=== PATIENT | male | born 1975 | race Caucasian/White ===

== ENCOUNTER 2018-07-02 13:19 | Emergency (ER) | payer BC, SELFPAY ==
[2018-07-02 13:20] VITALS: BP 140/86; PULSE 60; RESP 18; TEMP 36.8; O2SAT 100; BMI 31.8
--- NOTE | 2018-07-02 14:31 | CT_ITS ---
STUDY: CT ABDOMEN AND PELVIS WITH CONTRAST REASON FOR EXAM: Male, 43 years old. Lower abdominal pain for 5 to 6 years. RADIATION DOSAGE (If Supplied By Facility): CTDIvol = ( 19.34 ) mGy, DLP = ( 1212.50 ) mGycm TECHNIQUE: Transaxial images were obtained from the dome of the diaphragm to the symphysis pubis without oral contrast. 100CC ml of Isovue 250 contrast was administered. Sagittal and coronal images were reconstructed. Individualized dose optimization techniques were used for this CT. COMPARISON: None. FINDINGS: The visualized lung bases are unremarkable. The visualized portions of the heart are within normal limits. The liver is mildly enlarged and demonstrates mild fatty enhancement. There is no focal mass. Normal gallbladder and extrahepatic biliary system. There is borderline spinal with multiple calcified granulomata. Normal pancreas. Normal bilateral adrenal glands. There is cortical scarring of the bilateral kidneys without mass or renal calculi. Normal bilateral ureters. Normal visualized stomach. Normal small intestine. Normal colon. The appendix is visualized and appears normal. Normal abdominal aorta. Normal inferior vena cava. Normal retroperitoneum. The urinary bladder is incompletely distended. No obvious mass or filling defect. The prostate is normal in size. There is no pelvic lymphadenopathy. No free air or free fluid is seen within the peritoneal cavity. There is a small umbilical hernia of omental fat. There is a small right inguinal hernia of omental fat. The abdominal wall is otherwise unremarkable. There are diffuse degenerative changes of the visualized lumbar spine. There is a minimal levoscoliosis CT/Abdomen/Pelvis W IV Cont ONLY IMPRESSION: 1. Mild hepatosplenomegaly with fatty infiltration of the liver. 2. Calcified splenic granulomata. 3. Umbilical and right inguinal hernia of omental fat. 4. Degenerative changes of the lumbar spine. 5. Cortical scarring of the bilateral kidneys. Electronically Signed: Gavin Mayorga DO at 16:10 EDT Tel [phone], Service support ,
[2018-07-02] MEDS: 0.9% Normal Saline 1,000 ML 125 ML IV (14:56)
[2018-07-02 15:02] LABS: Absolute Lymphocyte Count 2.09 X10^3/ul (0.83-4.51); Absolute Neutrophil Count 6.6 X10^3/uL (2.0-7.7); Basophil# 0.05 X10^3/uL; Basophil% 0.5 % (0-1); Eosinophil# 0.42 X10^3/uL; Eosinophils% 4.3 % (0-5); Hematocrit 44.6 % (40-54); Hemoglobin 14.9 g/dl (13.0-16.5); Lymphocyte # 2.09 X10^3/ul (4.0); Lymphocyte % 21.3 % (19-41); Mean Corp Hgb Conc 33.4 g/gl (32-36); Mean Corpuscular Hgb 31.6 pg (27.0-32.0); Mean Corpuscular Volume 94.7 fL (80-94); Mean Platelet Vol. 9.8 fl (6.2-12.0); Monocyte% 6.1 % (0-10); Neutrophil # 6.63 X10^3/uL (2.7-7.7); Neutrophil % 67.5 % (47-70); Platelet Count 159 K/mm3 (150-450); RBC Distribution Width CV 12.7 % (11.6-14.6); RBC Distribution Width SD 42.7 fl (35.1-43.9); Red Blood Count 4.71 M/mm3 (4.6-6.2); White Blood Count 9.8 K/mm3 (4.4-11.0)
[2018-07-02 15:07] LABS: POSITIVE COUNT NO; POSITIVE DIFFERENTIAL NO; POSITIVE MORPHOLOGY NO
[2018-07-02 15:20] VITALS: BP 129/79; PULSE 57; RESP 16; O2SAT 98
[2018-07-02 15:21] LABS: AST(SGOT) 27 U/L (15-37); Alanine Aminotransfer ALT/SGPT 24 U/L (16-61); Albumin, Serum 3.8 g/dL (3.2-5.0); Alkaline Phosphatase 86 U/L (45-117); Anion Gap 5 (5-15); BUN 14 mg/dL (7-18); BUN/Creat Ratio 11.7 RATIO (10-20); Calcium,Total 9.3 mg/dL (8.5-10.1); Chloride 106 mmol/L (98-107); EST Glomerular Filtration Rate 71 mL/min (>60); Est Glom Filt Rate - Afr Amer 86 mL/min (>60); Estimated Creatinine Clearance 86.28 ml/min; Globulin 3.8 g/dL (2.2-4.2); Glucose 77 mg/dL (74-106); Lipase 130 U/L (73-393); Potassium 4.1 mmol/L (3.5-5.1); Protein, Total 7.6 g/dL (6.4-8.2); Sodium Level 139 mmol/L (136-145)
[2018-07-02 16:20] LABS: Bacteria 0 SEEN /hpf (None Seen); Mucous, Urine 0 SEEN /hpf (<or=2+); Red Blood Cells-Urine 0 SEEN /hpf (0-5); Squamous Epithelial Cells - UA 0 SEEN /hpf (0-5); White Blood Cells 0 SEEN /hpf (0-5)
--- NOTE | 2018-07-02 16:30 | ED.VISSUMM ---
- ER Visit Summary Date of Service: 07/02/18 Chief Complaint: Abdominal pain History of Present Illness: The patient is a 43 M who states for the past couple months he has had pain in his abdomen described as suprapubic radiating to each side. Saw oil developer recently found in blood work. He had some diarrhea yesterday which is not that uncommon. He had vomiting this morning. Epigastric he denies any fevers. No rashes. He denies any bowel or stomach issues as a teenager or in his knees. No blood in the stool or mucus. Physical Examination: Afebrile vital signs are stable Gen: Well-nourished well-developed Head: Normocephalic atraumatic Eyes: Perrl EOMI ENT: TMs clear no rhinorrhea moist mucous membranes Neck: Supple no lymphadenopathy no JVD nontender CVS: Regular rate rhythm no murmurs normal S1-S2 Respiratory: No distress clear to auscultation bilaterally chest nontender Abdomen: Soft tender right abdomen left abdomen suprapubic without guarding or rebound nondistended normal bowel sounds no masses Back: Nontender Extremity: Nontender no edema Skin: Normal color no rash Neuro: alert orientated ?3 CN II-XII intact normal strength sensation reflexes gait cerebellar Psych: Normal affect normal mood Test Results: CBC BMP liver lipase were normal. CT abdomen pelvis was also negative. Emergency Department Course and Treatment: Patient received IV fluids. I will write for Bentyl and Zofran. He is to follow-up with his oil developer. Impression: 1. Acute abdominal pain 2. Vomiting This note was generated with [employer] dictation software. It may contain incorrect words, spelling, and punctuation that were not noted in review of the chart prior to signing ED Disposition - Plan for ED Patient: Disposition: Home or Assisted Living Chief Complaint: Abd Pain Instructions: ED Abdominal Pain Unkn Cause Prescriptions: Ondansetron [Zofran Odt] 4 mg PO Q8H PRN PRN #10 tab PRN Reason: Nausea Dicyclomine HCl [Bentyl] 20 mg PO TIDAC PRN #20 cap PRN Reason: Pain Referrals: Antonio Salamanca MD [Primary Care Provider] - As soon as possible Additional Instructions: Call your oil developer for follow-up appointment
--- NOTE | 2018-07-02 16:34 | ED.DCSUM_ITS ---
- ER Visit Summary Date of Service: 07/02/18 Chief Complaint: Abdominal pain History of Present Illness: The patient is a 43 M who states for the past couple months he has had pain in his abdomen described as suprapubic radiating to each side. Saw day porter recently found in blood work. He had some diarrhea yesterday which is not that uncommon. He had vomiting this morning. Epigastric he denies any fevers. No rashes. He denies any bowel or stomach issues as a teenager or in his knees. No blood in the stool or mucus. Physical Examination: Afebrile vital signs are stable Gen: Well-nourished well-developed Head: Normocephalic atraumatic Eyes: Perrl EOMI ENT: TMs clear no rhinorrhea moist mucous membranes Neck: Supple no lymphadenopathy no JVD nontender CVS: Regular rate rhythm no murmurs normal S1-S2 Respiratory: No distress clear to auscultation bilaterally chest nontender Abdomen: Soft tender right abdomen left abdomen suprapubic without guarding or rebound nondistended normal bowel sounds no masses Back: Nontender Extremity: Nontender no edema Skin: Normal color no rash Neuro: alert orientated ?3 CN II-XII intact normal strength sensation reflexes gait cerebellar Psych: Normal affect normal mood Test Results: CBC BMP liver lipase were normal. CT abdomen pelvis was also negative. Emergency Department Course and Treatment: Patient received IV fluids. I will write for Bentyl and Zofran. He is to follow-up with his day porter. Impression: 1. Acute abdominal pain 2. Vomiting This note was generated with [employer] dictation software. It may contain incorrect words, spelling, and punctuation that were not noted in review of the chart prior to signing ED Disposition - Plan for ED Patient: Disposition: Home or Assisted Living Chief Complaint: Abd Pain Instructions: ED Abdominal Pain Unkn Cause Prescriptions: Ondansetron [Zofran Odt] 4 mg PO Q8H PRN PRN #10 tab PRN Reason: Nausea Dicyclomine HCl [Bentyl] 20 mg PO TIDAC PRN #20 cap PRN Reason: Pain Referrals: Antonio Salamanca MD [Primary Care Provider] - As soon as possible Additional Instructions: Call your day porter for follow-up appointment
[2018-07-02 16:36] LABS: Color, Urine Yellow (Yellow); Glucose, Dipstick Normal (Normal); Ketone-Dipstick Negative (Negative); Leukocyte Esterase-Dipstick Negative /ul (Negative); Nitrite-Dipstick Negative (Negative); Occult Blood-Urine Negative /ul (Negative); Protein-Dipstick 30 mg/dl (Negative); Specific Gravity, Urine 1.015 (1.002-1.030); Urine Bilirubin Dipstick Negative (Negative); Urine Clarity Sl. Cloudy (Clear); Urine Urobilinogen Normal (Normal)
[2018-07-02 16:43] VITALS: BP 138/62; PULSE 74; RESP 16; O2SAT 99
== END 2018-07-02 16:43 | disposition home or self-care (01) ==
PROVIDERS: Emergency Provider Emergency Medicine; Family Provider Family Medicine; PCP Family Medicine
DX: R10.30 Lower abdominal pain, unspecified (principal); R11.2 Nausea with vomiting, unspecified; R19.7 Diarrhea, unspecified; Z72.0 Tobacco use
CPT/HCPCS: 74177; 80053; 81001; 83690; 85025; 96360; 96361; 99285; J7030; Q9967; A4216

== ENCOUNTER 2018-09-24 12:31 | Emergency (ER) | payer BC, SELFPAY ==
[2018-09-24 12:32] VITALS: BP 129/77; PULSE 64; RESP 16; TEMP 36.2; O2SAT 100; BMI 32.1
--- NOTE | 2018-09-24 13:34 | ED.VISSUMM ---
- ER Visit Summary Date of Service: 09/24/18 Chief Complaint: Left lower quadrant abdominal and groin pain. History of Present Illness: The patient is a 43 M male history of abdominal hernias and reflux. Also irritable bowel. Patient never had any prior abdominal surgery. He was seen in the ER and treated in June at that time he had a CAT scan that showed umbilical and right inguinal hernia. He had normal labs at that time. Patient states for the last 2 weeks is an intermittent left lower quadrant abdominal pain. Worse with bearing down no bowel movement. He has not seen any lump or hernia. He denies any dysuria. No trauma. No fever, nausea, vomiting, diarrhea or constipation. No weight loss. No melena. States pain comes and goes. There is times is completely pain-free. Physical Examination: Middle-aged male no acute distress. Vital signs are stable he is afebrile. He does not look septic or toxic he is in no distress. HEENT exam unremarkable. Lungs clear to auscultation bilaterally. Heart regular rate and rhythm no murmur. Abdomen soft. Nondistended normal bowel sounds. He is a small umbilical hernia easily reducible. At this time I do not feel an obvious left inguinal hernia but that is where it is tender. He also has a small right inguinal hernia is also not incarcerated or strangulated. External exam is unremarkable. Testicles are nontender. There is no masses. Extremities moves all 4 back unremarkable neurologically is awake and alert. Test Results: None Emergency Department Course and Treatment: I reviewed the patient's prior negative lab work and CAT scan studies. I went over those with him. Treatment Plan: Patient referred to Dr. Arnie Longo of the [facility] or Dr. River Crockett for evaluation of possible left inguinal hernia. Disposition: discharge Impression: Left groin and lower quadrant abdominal pain uncertain etiology This note was generated with [employer] dictation software. It may contain incorrect words, spelling, and punctuation that were not noted in review of the chart prior to signing ED Disposition - Plan for ED Patient: Disposition: Home or Assisted Living Chief Complaint: Abd Pain Instructions: ED Abdominal Pain Unkn Cause, ED Hernia Inguinal Referrals: River Crockett MD [STAFF PHYSICIAN] - As soon as possible Antonio Salamanca MD [Primary Care Provider] - As Needed Joshua Longo MD [STAFF PHYSICIAN] - As soon as possible Additional Instructions: On follow-up upon the surgeons listed. Dr. Waddell works at the [facility]. Dr. Crockett works here at the [facility]. Either 1 of them can evaluate you for possible left inguinal hernia. On a prior CAT scan you had a bellybutton hernia and also a right groin hernia.
--- NOTE | 2018-09-24 13:37 | ED.DCSUM_ITS ---
- ER Visit Summary Date of Service: 09/24/18 Chief Complaint: Left lower quadrant abdominal and groin pain. History of Present Illness: The patient is a 43 M male history of abdominal hernias and reflux. Also irritable bowel. Patient never had any prior abdominal surgery. He was seen in the ER and treated in June at that time he had a CAT scan that showed umbilical and right inguinal hernia. He had normal labs at that time. Patient states for the last 2 weeks is an intermittent left lower quadrant abdominal pain. Worse with bearing down no bowel movement. He has not seen any lump or hernia. He denies any dysuria. No trauma. No fever, nausea, vomiting, diarrhea or constipation. No weight loss. No melena. States pain comes and goes. There is times is completely pain-free. Physical Examination: Middle-aged male no acute distress. Vital signs are stable he is afebrile. He does not look septic or toxic he is in no distress. HEENT exam unremarkable. Lungs clear to auscultation bilaterally. Heart regular rate and rhythm no murmur. Abdomen soft. Nondistended normal bowel sounds. He is a small umbilical hernia easily reducible. At this time I do not feel an obvious left inguinal hernia but that is where it is tender. He also has a small right inguinal hernia is also not incarcerated or strangulated. External exam is unremarkable. Testicles are nontender. There is no masses. Extremities moves all 4 back unremarkable neurologically is awake and alert. Test Results: None Emergency Department Course and Treatment: I reviewed the patient's prior negative lab work and CAT scan studies. I went over those with him. Treatment Plan: Patient referred to Dr. Arnie Longo of the [facility] or Dr. River Crockett for evaluation of possible left inguinal hernia. Disposition: discharge Impression: Left groin and lower quadrant abdominal pain uncertain etiology This note was generated with [employer] dictation software. It may contain incorrect words, spelling, and punctuation that were not noted in review of the chart prior to signing ED Disposition - Plan for ED Patient: Disposition: Home or Assisted Living Chief Complaint: Abd Pain Instructions: ED Abdominal Pain Unkn Cause, ED Hernia Inguinal Referrals: River Crockett MD [STAFF PHYSICIAN] - As soon as possible Antonio Salamanca MD [Primary Care Provider] - As Needed Joshua Longo MD [STAFF PHYSICIAN] - As soon as possible Additional Instructions: On follow-up upon the surgeons listed. Dr. Waddell works at the [facility]. Dr. Crockett works here at the [facility]. Either 1 of them can evaluate you for possible left inguinal hernia. On a prior CAT scan you had a bellybutton hernia and also a right groin hernia.
--- NOTE | 2018-09-24 13:37 | ED.DEP ---
ED Disposition - Plan for ED Patient: Disposition: Home or Assisted Living Chief Complaint: Abd Pain Instructions: ED Abdominal Pain Unkn Cause, ED Hernia Inguinal Referrals: Antonio Salamanca MD [Primary Care Provider] - As Needed Joshua Longo MD [STAFF PHYSICIAN] - As soon as possible River Crockett MD [STAFF PHYSICIAN] - As soon as possible Additional Instructions: On follow-up upon the surgeons listed. Dr. Waddell works at the [facility]. Dr. Crockett works here at the [facility]. Either 1 of them can evaluate you for possible left inguinal hernia. On a prior CAT scan you had a bellybutton hernia and also a right groin hernia.
== END 2018-09-24 13:56 | disposition home or self-care (01) ==
LOC: ED 13:54
PROVIDERS: Emergency Provider Emergency Medicine; Family Provider Family Medicine; PCP Family Medicine
DX: R10.32 Left lower quadrant pain (principal); R19.7 Diarrhea, unspecified; K42.9 Umbilical hernia without obstruction or gangrene; K40.90 Unilateral inguinal hernia, without obstruction or gangrene, not specified as recurrent; K21.9 Gastro-esophageal reflux disease without esophagitis; K58.9 Irritable bowel syndrome, unspecified; Z72.0 Tobacco use
CPT/HCPCS: 99283

== ENCOUNTER → 2018-10-02 16:59 | Outpatient (CLI) | payer BC, SELFPAY ==
[2018-09-25 13:47] VITALS: BMI 32.1
--- NOTE | 2018-10-02 17:02 | CT_ITS ---
STUDY: CT ABDOMEN AND PELVIS WITH CONTRAST REASON FOR EXAM: Male, 43 years old. Left groin pain RADIATION DOSAGE (If Supplied By Facility): CTDIvol = ( 16.85 ) mGy, DLP = ( 1127.85 ) mGycm TECHNIQUE: Transaxial images were obtained from the dome of the diaphragm to the symphysis pubis with oral contrast. 100ML ml of Isovue 300 contrast was administered. Sagittal and coronal images were reconstructed. Individualized dose optimization techniques were used for this CT. COMPARISON: 07/02/2008 FINDINGS: The visualized lung bases are unremarkable. The visualized portions of the heart are within normal limits. Normal liver. Normal gallbladder and extrahepatic biliary system. There are multiple benign calcified granulomata of the spleen. Normal pancreas. Normal bilateral adrenal glands. Normal right kidney. Normal left kidney. Normal visualized stomach. Normal small intestine. Normal colon. The appendix is visualized and appears normal. Normal abdominal aorta. Normal inferior vena cava. Normal retroperitoneum. Normal urinary bladder. 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 Mild degenerative disc disease and bulging of the lumbar spine with congenital narrowing of the spinal canal. CT/Abdomen/Pelvis WITH Contrast IMPRESSION: 1. No acute inflammatory process or bowel obstruction. 2. No definitive abdominal wall hernia. 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 3. 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 Electronically Signed: Charlie Nogueira MD at 23:03 EST , Service support ,
== END ==
LOC: CT 17:01
PROVIDERS: Family Provider Family Medicine; PCP Family Medicine; Referring Provider Surgery; Visit Provider Surgery
DX: R10.32 Left lower quadrant pain (principal)
CPT/HCPCS: 74177; Q9967

== ENCOUNTER 2019-04-06 15:49 | Emergency (ER) | payer BC, SELFPAY ==
[2018-09-25 13:47] VITALS: BMI 32.1
[2019-04-06 15:51] VITALS: BP 107/68; PULSE 95; RESP 18; TEMP 36.7; O2SAT 96; BMI 31.6
[2019-04-06 16:46] LABS: Bacteria 0 SEEN /hpf (None Seen); Red Blood Cells-Urine 0 SEEN /hpf (0-5); Squamous Epithelial Cells - UA 0 SEEN /hpf (0-5)
--- NOTE | 2019-04-06 16:46 | CT_ITS ---
STUDY: CT ABDOMEN AND PELVIS WITHOUT CONTRAST REASON FOR EXAM: Male, 43 years old. Right-sided flank pain RADIATION DOSAGE (If Supplied By Facility): CTDIvol = ( 16.27 ) mGy, DLP = ( 910.44 ) mGycm TECHNIQUE: Transaxial images were obtained from the dome of the diaphragm to the symphysis pubis without oral contrast, and without intravenous contrast. Sagittal and coronal images were reconstructed. Individualized dose optimization techniques were used for this CT. COMPARISON: None. FINDINGS: This is a limited non-IV and nonoral contrast study. There is stable scattered pulmonary scarring and stable mild fibrotic changes right middle lobe lingula and lower lobes. The visualized portions of the heart are within normal limits. Normal liver. Normal gallbladder and extrahepatic biliary system. Normal spleen. Normal pancreas. Normal bilateral adrenal glands. Normal right kidney. 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 There is no ureteral dilatation or hydronephrosis. Normal left kidney. There are multiple linear hyperdensities in the stomach. Normal small intestine. There is a moderate colonic fecal load. The appendix is visualized and appears normal. Normal abdominal aorta. Normal inferior vena cava. Normal retroperitoneum. The bladder is decompressed. There is Mild bladder wall thickening. Normal abdominal wall. There is multilevel lumbar spine disc osteophyte complexes, central canal and foraminal stenoses. There is subchondral sclerosis within both hips. CT/Abdomen/Pelvis without Cont IMPRESSION: Limited non-IV and nonoral contrast study Scattered pulmonary scarring and mild fibrotic changes, right middle lobe, lingula and lower lobes No renal or ureteral calculi. No hydronephrosis. 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 N.B. : The above information has been verbally conveyed by Gerald Soto to Dr. Loren Sanchez MD, on 04/06/2019 17:48:18 (ET). Electronically Signed: Gerald Soto, at 17:49 EDT Tel , Service support ,
--- NOTE | 2019-04-06 16:47 | ED.DCSUM_ITS ---
- ER Visit Summary Date of Service: 04/06/19 Chief Complaint: Right flank pain History of Present Illness: The patient is a 43 M presenting with right flank pain. Patient states this started today. Pain was sudden onset. Pain is in his right flank and radiates to his right mid abdomen. It is worsened with movement. He has no history of kidney stones but does have a family history of kidney stones. He does not take any medication at home. He denies injury. Denies other urinary complaints. Denies other complaints. Physical Examination: Vitals are stable. Patient is afebrile. Alert no acute distress. HEENT exam is unremarkable. Neck is supple. Lungs are clear and equal bilaterally. Heart is regular rate and rhythm. Abdomen is soft nontender nondistended. No guarding or rebound Back right CVA tenderness Extremities are unremarkable. Skin is warm and dry. No focal neurologic deficit. Remainder of right flank pain is unremarkable. Emergency Department Course and Treatment: Patient is given IV fluids, morphine, Zofran. CBC shows white count 12.7. Chemistries unremarkable. Urinalysis 0-5 white blood cells, [address] flank shows No renal or ureteral calculi. No hydronephrosis. 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 Multiple linear hyperdensities within the stomach most likely ingested food material, this should be correlated with clinical history. Patient states he did eat just prior to arrival. Discussed with Dr. Boyd. This is a congenital incidental finding. On reevaluation, patient is resting comfortably. He feels improved. Pain is worsened with movement. He is given prescription for Naprosyn and Flexeril. Advised to follow-up with his primary care physician. Advised return to ED if worsening complaints. Disposition: Discharge home Impression: Right flank pain This note was generated with [employer] dictation software. It may contain incorrect words, spelling, and punctuation that were not noted in review of the chart prior to signing ED Disposition - Plan for ED Patient: Prescriptions: cycloBENZAPRine HCl [Flexeril] 10 mg PO TID PRN #20 tab PRN Reason: Muscle Spasm Prescription Printed Naproxen [Naprosyn] 500 mg PO BID PRN #20 tab Prescription Printed Referrals: Isma Crisostomo DO [STAFF PHYSICIAN] - Antonio Salamanca MD [Primary Care Provider] -
[2019-04-06 16:51] LABS: Color, Urine Yellow (Yellow); Glucose, Dipstick Normal (Normal); Ketone-Dipstick Negative (Negative); Leukocyte Esterase-Dipstick Negative /ul (Negative); Nitrite-Dipstick Negative (Negative); Occult Blood-Urine Negative /ul (Negative); Protein-Dipstick 100 mg/dl (Negative); Urine Bilirubin Dipstick Negative (Negative); Urine Clarity Clear (Clear); Urine Urobilinogen Normal (Normal)
[2019-04-06] MEDS: 0.9% Normal Saline 1,000 ML 1000 ML IV (17:03)
[2019-04-06] MEDS: Ondansetron 4 MG/2 ML Vial IV (17:03)
[2019-04-06] MEDS: Morphine 4 MG/ML Syringe IV (17:03)
[2019-04-06 17:19] LABS: Absolute Lymphocyte Count 2.11 X10^3/uL (0.83-4.51); Absolute Neutrophil Count 9.2 X10^3/uL (2.0-7.7); Basophil# 0.07 X10^3/uL; Basophil% 0.6 % (0-1); Eosinophil# 0.26 X10^3/uL; Eosinophils% 2.1 % (0-5); Hematocrit 45.4 % (40-54); Lymphocyte # 2.11 X10^3/ul (4.0); Lymphocyte % 16.7 % (19-41); Mean Corpuscular Hgb 31.6 pg (27.0-32.0); Mean Corpuscular Volume 95.8 fL (80-94); Mean Platelet Vol. 9.8 fl (6.2-12.0); Monocyte# 0.96 X10^3/uL; Monocyte% 7.6 % (0-10); NRBC Flagged by Analyzer 0 % (0-5); Neutrophil # 9.16 X10^3/uL (2.7-7.7); Neutrophil % 72.2 % (47-70); Platelet Count 171 K/mm3 (150-450); RBC Distribution Width CV 12.6 % (11.6-14.6); RBC Distribution Width SD 45.1 fl (35.1-43.9); Red Blood Count 4.74 M/mm3 (4.6-6.2); White Blood Count 12.7 K/mm3 (4.4-11.0)
[2019-04-06 17:20] LABS: White Blood Cells 0-5 SEEN /hpf (0-5)
[2019-04-06 17:24] LABS: Hyaline Cast 0-5 SEEN /lpf (0-5)
[2019-04-06 17:26] LABS: Mucous, Urine RARE /hpf (<or=2+)
[2019-04-06 17:53] LABS: ALB/GLOB Ratio 1.1 RATIO (0.9-2.4); AST(SGOT) 27 U/L (15-37); Alanine Aminotransfer ALT/SGPT 40 U/L (16-61); Albumin, Serum 3.9 g/dL (3.2-5.0); Alkaline Phosphatase 87 U/L (45-117); Anion Gap 6 (5-15); BUN 14 mg/dL (7-18); BUN/Creat Ratio 10.9 RATIO (10-20); Calcium,Total 9.3 mg/dL (8.5-10.1); Chloride 105 mmol/L (98-107); Creatinine, Serum 1.28 mg/dL (0.70-1.30); EST Glomerular Filtration Rate 66 mL/min (>60); Est Glom Filt Rate - Afr Amer 79 mL/min (>60); Estimated Creatinine Clearance 80.89 ml/min; Globulin 3.5 g/dL (2.2-4.2); Glucose 91 mg/dL (74-106); Lipase 120 U/L (73-393); Potassium 3.9 mmol/L (3.5-5.1); Protein, Total 7.4 g/dL (6.4-8.2); Sodium Level 139 mmol/L (136-145)
[2019-04-06 18:08] VITALS: BP 111/73; PULSE 87; RESP 16; O2SAT 99
--- NOTE | 2019-04-06 18:09 | ED.RN ---
reports pt has been sleeping on couch lately due to new puppy.
--- NOTE | 2019-04-06 18:23 | ED.DEP ---
ED Disposition - Plan for ED Patient: Prescriptions: cycloBENZAPRine HCl [Flexeril] 10 mg PO TID PRN #20 tablet PRN Reason: Muscle Spasm Naproxen [Naprosyn] 500 mg PO BID PRN #20 tablet Referrals: Isma Crisostomo DO [STAFF PHYSICIAN] - Antonio Salamanca MD [Primary Care Provider] - Neftali Boyd MD [STAFF PHYSICIAN] -
--- NOTE | 2019-04-06 18:38 | ED.DEP ---
ED Disposition - Plan for ED Patient: Prescriptions: cycloBENZAPRine HCl [Flexeril] 10 mg PO TID PRN #20 tab PRN Reason: Muscle Spasm Prescription Printed Naproxen [Naprosyn] 500 mg PO BID PRN #20 tab Prescription Printed Referrals: Isma Crisostomo DO [STAFF PHYSICIAN] - Antonio Salamanca MD [Primary Care Provider] -
== END 2019-04-06 18:56 | disposition home or self-care (01) ==
LOC: ED 16:52
PROVIDERS: Emergency Provider Emergency Medicine; Family Provider Family Medicine; PCP Family Medicine
DX: R10.9 Unspecified abdominal pain (principal); Q62.8 Other congenital malformations of ureter; K21.9 Gastro-esophageal reflux disease without esophagitis; Z72.0 Tobacco use
CPT/HCPCS: 74176; 80053; 81001; 83690; 85025; 96361; 96374; 96375; 99283; J7030; A4216; J2405

== ENCOUNTER 2020-09-27 10:13 | Emergency (ER) | payer BC, SELFPAY ==
[2019-12-27 09:13] VITALS: BMI 31.6
[2020-09-27 10:15] VITALS: BP 127/91; PULSE 110; RESP 16; TEMP 35.2; O2SAT 97; BMI 34.8
[2020-09-27] MEDS: Cefazolin 1 GM/50 ML BAG IV (10:59)
--- NOTE | 2020-09-27 10:59 | ED.VISSUMM ---
- ER Visit Summary Date of Service: 09/27/20 Chief Complaint: Right foot pain and swelling. History of Present Illness: The patient is a 45 M who presents with right foot pain and swelling that has been getting worse over the past 2 weeks. Patient states he is being treated for gout by his nurse practitioner. Patient states the pain is getting progressively worse. Patient describes the pain is constant aching but sharp with certain movements. Patient states the pain is worse with any ambulation or weightbearing. Patient denies any paresthesias or weakness. Patient denies any fevers or chills. Patient denies any trauma or injury. Physical Examination: Vital signs are stable. Patient is afebrile. Patient is in no acute distress. Skin is warm and dry. There is tenderness and erythema over the lateral aspect of the right foot and ankle area. There is no fluctuance or abscess formation. There is some mild warmth. There is no obvious deformity noted. Range of motion was limited in all motion secondary to pain. Pedal pulses are equal bilaterally. Sensation was intact to light touch in all digits. Capillary refill was less than 2 seconds in all digits. There is no calf tenderness. Test Results: CBC shows a mild leukocytosis of 11.2. Comprehensive metabolic profile was essentially within normal limits. X-rays of the right foot were obtained. There are 3 views. On my interpretation, there is some mild soft tissue swelling. There is no acute fracture. There is no evidence of osteomyelitis. Radiologist also interpreted the x-ray and agrees. Emergency Department Course and Treatment: Patient was given a dose of Ancef here. Patient was given prescription for Keflex. Patient was instructed to keep his foot elevated. Patient was instructed to follow-up with his primary care physician in 5 to 7 days. Patient understood and was agreeable with the plan. All questions were answered. Disposition: Discharge home Impression: Right foot cellulitis This note was generated with [employer] dictation software. It may contain incorrect words, spelling, and punctuation that were not noted in review of the chart prior to signing ED Disposition - Plan for ED Patient: Disposition: Home or Assisted Living Diagnosis: Cellulitis of right foot Instructions: ED Cellulitis Prescriptions: Cephalexin [Keflex] 500 mg PO Q6 #40 cap Transmission Status: Pending to [id number] Referrals: Antonio Salamanca MD [Primary Care Provider] - 5-7 Days
--- NOTE | 2020-09-27 11:05 | RAD_ITS ---
STUDY: X-RAY - RIGHT FOOT CLINICAL: Male, 45 years old. Gout in rt foot, swelling, pain TECHNIQUE: 3 view(s) of the foot. COMPARISON: None. FINDINGS: Normal talus, calcaneus, and tarsal bones. Normal visualized subtalar, talonavicular, calcaneocuboid, tarsal and tarsometatarsal articulations. Normal metatarsi. Normal metatarsophalangeal joint of the great toe. Normal tibial and fibular sesamoid bones. Normal interphalangeal joint of the great toe. Normal phalanges of the great toe. Normal second through fifth metatarsophalangeal joints. Normal interphalangeal joints and phalanges of the lesser toes. Mild soft tissue swelling. RAD/Foot min 3 Views IMPRESSION: Mild soft tissue swelling. Electronically Signed: Jj Salazar MD at 11:26 EST , Service support ,
[2020-09-27 11:15] LABS: Absolute Lymphocyte Count 1.65 X10^3/uL (0.83-4.51); Absolute Neutrophil Count 8.4 X10^3/uL (2.0-7.7); Basophil# 0.06 X10^3/uL; Basophil% 0.5 % (0-1); Eosinophil# 0.14 X10^3/uL; Eosinophils% 1.3 % (0-5); Hematocrit 44.2 % (40-54); Lymphocyte # 1.65 X10^3/ul (4.0); Lymphocyte % 14.8 % (19-41); Mean Corp Hgb Conc 33.9 g/dL (32-36); Mean Corpuscular Hgb 31.4 pg (27.0-32.0); Mean Corpuscular Volume 92.5 fL (80-94); Mean Platelet Vol. 9.9 fl (6.2-12.0); Monocyte# 0.79 X10^3/uL; Monocyte% 7.1 % (0-10); NRBC Flagged by Analyzer 0 % (0-5); Neutrophil % 75.3 % (47-70); Platelet Count 185 K/mm3 (150-450); RBC Distribution Width CV 12.5 % (11.6-14.6); RBC Distribution Width SD 42.9 fl (35.1-43.9); Red Blood Count 4.78 M/mm3 (4.6-6.2); White Blood Count 11.2 K/mm3 (4.4-11.0)
[2020-09-27 11:29] LABS: ALB/GLOB Ratio 0.9 RATIO (0.9-2.4); AST(SGOT) 23 U/L (15-37); Alanine Aminotransfer ALT/SGPT 77 U/L (16-61); Albumin, Serum 3.6 g/dL (3.2-5.0); Alkaline Phosphatase 134 U/L (45-117); Anion Gap 5 (5-15); BUN 21 mg/dL (7-18); BUN/Creat Ratio 17.6 RATIO (10-20); Calcium,Total 9.6 mg/dL (8.5-10.1); Chloride 104 mmol/L (98-107); Creatinine, Serum 1.19 mg/dL (0.70-1.30); EST Glomerular Filtration Rate 71 mL/min (>60); Est Glom Filt Rate - Afr Amer 86 mL/min (>60); Estimated Creatinine Clearance 85.25 ml/min; Globulin 4.2 g/dL (2.2-4.2); Glucose 215 mg/dL (74-106); Potassium 4.1 mmol/L (3.5-5.1); Protein, Total 7.8 g/dL (6.4-8.2); Sodium Level 138 mmol/L (136-145)
[2020-09-27 12:16] VITALS: BP 134/88; PULSE 89; RESP 16; O2SAT 95
[2020-09-27 12:21] VITALS: BP 108/77; PULSE 62; RESP 15; O2SAT 98
== END 2020-09-27 12:22 | disposition home or self-care (01) ==
PROVIDERS: Emergency Provider Emergency Medicine; PCP Family Medicine
DX: L03.115 Cellulitis of right lower limb (principal); K21.9 Gastro-esophageal reflux disease without esophagitis; F90.9 Attention-deficit hyperactivity disorder, unspecified type; M10.9 Gout, unspecified
CPT/HCPCS: 73630; 80053; 85025; 96365; 99284; A4216

== ENCOUNTER → 2020-11-03 10:52 | Outpatient (CLI) | payer BC, SELFPAY ==
[2020-11-03 10:23] VITALS: BMI 35.0
[2020-11-03 12:53] LABS: Absolute Lymphocyte Count 1.91 X10^3/uL (0.83-4.51); Absolute Neutrophil Count 6.5 X10^3/uL (2.0-7.7); Basophil# 0.06 X10^3/uL; Basophil% 0.6 % (0-1); Eosinophil# 0.21 X10^3/uL; Eosinophils% 2.2 % (0-5); Hematocrit 46.9 % (40-54); Hemoglobin 14.9 g/dL (13.0-16.5); Lymphocyte # 1.91 X10^3/ul (4.0); Lymphocyte % 20.1 % (19-41); Mean Corp Hgb Conc 31.8 g/dL (32-36); Mean Corpuscular Hgb 30.6 pg (27.0-32.0); Mean Corpuscular Volume 96.3 fL (80-94); Mean Platelet Vol. 9.9 fl (6.2-12.0); Monocyte# 0.64 X10^3/uL; Monocyte% 6.7 % (0-10); NRBC Flagged by Analyzer 0 % (0-5); Neutrophil # 6.54 X10^3/uL (2.7-7.7); Platelet Count 205 K/mm3 (150-450); RBC Distribution Width CV 13.1 % (11.6-14.6); RBC Distribution Width SD 46.2 fl (35.1-43.9); Red Blood Count 4.87 M/mm3 (4.6-6.2); White Blood Count 9.5 K/mm3 (4.4-11.0)
[2020-11-03 13:02] LABS: Amylase 99 U/L (25-115); Lipase 559 U/L (73-393)
[2020-11-03 13:45] LABS: ALB/GLOB Ratio 1.1 RATIO (0.9-2.4); AST(SGOT) 36 U/L (15-37); Alanine Aminotransfer ALT/SGPT 66 U/L (16-61); Albumin, Serum 4.1 g/dL (3.2-5.0); Alkaline Phosphatase 135 U/L (45-117); Anion Gap 7 (5-15); BUN 15 mg/dL (7-18); BUN/Creat Ratio 12.3 RATIO (10-20); Calcium,Total 9.7 mg/dL (8.5-10.1); Chloride 106 mmol/L (98-107); Creatinine, Serum 1.22 mg/dL (0.70-1.30); EST Glomerular Filtration Rate 69 mL/min (>60); Est Glom Filt Rate - Afr Amer 83 mL/min (>60); Globulin 3.8 g/dL (2.2-4.2); Glucose 121 mg/dL (74-106); Potassium 4.9 mmol/L (3.5-5.1); Protein, Total 7.9 g/dL (6.4-8.2); Sodium Level 138 mmol/L (136-145); Uric Acid 9.3 mg/dL (3.5-7.2)
== END ==
PROVIDERS: Internal Medicine Gastroenterology; PCP Internal Medicine; Referring Provider Internal Medicine; Visit Provider Internal Medicine
DX: R10.84 Generalized abdominal pain (principal); R11.2 Nausea with vomiting, unspecified; M10.9 Gout, unspecified
CPT/HCPCS: 36415; 80053; 82150; 83690; 84550; 85025

== ENCOUNTER 2021-04-25 10:37 | Emergency (ER) | payer SELFPAY ==
[2021-04-25 10:38] VITALS: BP 144/97; PULSE 94; RESP 18; TEMP 36.2; O2SAT 99; BMI 32.7
[2021-04-25 11:00] LABS: Bacteria 0 SEEN /hpf (None Seen); Mucous, Urine 0 SEEN /hpf (<or=2+); Red Blood Cells-Urine 0 SEEN /hpf (0-5); Squamous Epithelial Cells - UA 0 SEEN /hpf (0-5); White Blood Cells 0 SEEN /hpf (0-5)
[2021-04-25 11:02] LABS: Color, Urine Yellow (Yellow); Glucose, Dipstick Normal (Normal); Ketone-Dipstick Negative (Negative); Leukocyte Esterase-Dipstick Negative /ul (Negative); Nitrite-Dipstick Negative (Negative); Occult Blood-Urine Negative /ul (Negative); Protein-Dipstick 100 mg/dl (Negative); Urine Bilirubin Dipstick Negative (Negative); Urine Clarity Clear (Clear); Urine Urobilinogen Normal (Normal)
[2021-04-25 11:32] LABS: Absolute Lymphocyte Count 1.58 X10^3/uL (0.83-4.51); Absolute Neutrophil Count 9.1 X10^3/uL (2.0-7.7); Basophil# 0.07 X10^3/uL; Basophil% 0.6 % (0-1); Eosinophils% 0.9 % (0-5); Hematocrit 47.4 % (40-54); Hemoglobin 15.5 g/dL (13.0-16.5); Lymphocyte # 1.58 X10^3/ul (0.83-4.51); Lymphocyte % 13.8 % (19-41); Mean Corp Hgb Conc 32.7 g/dL (32-36); Mean Corpuscular Hgb 30.8 pg (27.0-32.0); Mean Platelet Vol. 10.7 fl (6.2-12.0); Monocyte# 0.56 X10^3/uL; Monocyte% 4.9 % (0-10); NRBC Flagged by Analyzer 0 % (0-5); Neutrophil # 9.08 X10^3/uL (2.7-7.7); POSITIVE COUNT YES; Platelet Count 136 K/mm3 (150-450); RBC Distribution Width CV 12.9 % (11.6-14.6); RBC Distribution Width SD 44.2 fl (35.1-43.9); Red Blood Count 5.04 M/mm3 (4.6-6.2); White Blood Count 11.5 K/mm3 (4.4-11.0)
[2021-04-25] MEDS: 0.9% Normal Saline 1,000 ML 1000 ML IV (11:36)
[2021-04-25] MEDS: Ondansetron 4 MG/2 ML Vial IV (11:36)
[2021-04-25] MEDS: Dicyclomine 20 MG/2 ML Vial IM (11:36)
[2021-04-25 11:37] LABS: Differential Indicated SCAN CRITERIA MET
[2021-04-25 11:46] LABS: AST(SGOT) 44 U/L (15-37); Alanine Aminotransfer ALT/SGPT 85 U/L (16-61); Albumin, Serum 4.4 g/dL (3.2-5.0); Alkaline Phosphatase 137 U/L (45-117); Anion Gap 9 (5-15); BUN 16 mg/dL (7-18); BUN/Creat Ratio 13.6 RATIO (10-20); Bilirubin, Direct 0.15 mg/dL (0.00-0.30); Calcium,Total 9.7 mg/dL (8.5-10.1); Chloride 99 mmol/L (98-107); Creatinine, Serum 1.18 mg/dL (0.70-1.30); EST Glomerular Filtration Rate 71 mL/min (>60); Est Glom Filt Rate - Afr Amer 86 mL/min (>60); Estimated Creatinine Clearance 85.08 ml/min; Globulin 4.1 g/dL (2.2-4.2); Glucose 122 mg/dL (74-106); Lipase 268 U/L (73-393); Potassium 4.1 mmol/L (3.5-5.1); Protein, Total 8.5 g/dL (6.4-8.2); Sodium Level 133 mmol/L (136-145)
[2021-04-25 11:58] LABS: Differential Comment SCANNED; Platelet Estimate SLT DEC (ADEQ)
--- NOTE | 2021-04-25 12:56 | EDS_ITS ---
HPI History of Present Illness Chief Complaint: Nausea/Vomiting/Diarrhea Informant: patient Onset/Context/Timing Onset: Days (4 days) Context: Gradual Onset Timing: Waxes and wanes Current Severity: Mild Maximum Severity: Moderate Narrative Narrative: Patient presents with a 4-day history of nausea, vomiting, and diarr hea. He reports some chills but no fever. He has had a mild cough. [facility] Medical History Arthritis Barretts esophagus FH: colon polyps GERD (gastroesophageal reflux disease) History of gout IBS (irritable bowel syndrome) Pilonidal cyst Home Medications lansoprazole 30 mg capsule,delayed release 30 mg PO DAILY 09/25/18 [History Last Taken Unknown] allopurinol 100 mg tablet 100 mg PO DAILY #90 tab 11/03/20 [Rx Last Taken Unknown] sucralfate 1 gram tablet 1 g PO QHS tab 11/03/20 [History Last Taken Unknown] cyclobenzaprine 10 mg tablet 5 - 10 mg PO TID PRN #30 tab 02/15/21 [Rx Last Taken Unknown] methylprednisolone 4 mg tablets in a dose pack See Rx Instructions PO PER PKG DIR #21 tab 02/15/21 [Rx Last Taken Unknown] dicyclomine 10 mg PO BID PRN #10 cap 04/25/21 [Rx Last Taken Unknown] ondansetron 4 mg PO Q8H PRN #10 tab 04/25/21 [Rx Last Taken Unknown] Allergy/AdvReac Type Severity Reaction Status Date / Time acetaminophen AdvReac Mild Nausea/Vom/ Verified 04/25/21 10:40 Diarrhea Family History Aunt Diabetes Mother Cancer History of blood transfusion Surgical History History of cholecystectomy Status post surgical removal of pilonidal cyst Social History Smoking Status: Current every day smoker tobacco type: cigarettes alcohol intake: former year quit: 2019 substance use type: former substance user Date of last use: Stopped 04/18 ROS ROS ED Constitutional Constitutional ED: Denies chills or fever(s) Eyes Eyes: Denies change in vision ENT ENT ED: Denies sore throat Cardiovascular Cardiovascular: Denies chest pain Respiratory/Chest Respiratory/Chest: Denies cough or dyspnea Gastrointestinal Gastrointestinal: Reports abdominal pain, diarrhea, nausea and vomiting Genitourinary Genitourinary ED: Denies dysuria Musculoskeletal Musculoskeletal: Denies back pain Integumentary Denies rash Neurologic Neurologic: Reports weakness; Denies headache(s) Psychiatric Psychiatric: Denies anxiety or depression Allergic/Immunologic Allergic/Immunologic ED: Denies urticaria EXAM Physical Exam Const Vital Signs: 04/25/21 10:38 Temperature 97.1 F L Temperature Source Temporal Pulse Rate 94 Respiratory Rate 18 Blood Pressure 144/97 H Blood Pressure Mean 112 Pulse Ox 99 Oxygen Delivery Method Room Air Positive well nourished and well developed General Appearance ED: well developed HEENT Reports normocephalic and head/scalp atraumatic Eyes PERRL and EOMs intact bilaterally Neck supple Chest Wall inspection of chest normal and palpation of chest normal Resp normal respiratory effort and clear to auscultation bilaterally Cardio regular rate and regular rhythm GI Palpation: soft and tender other (Mild diffuse tenderness to palpation.); Negative for guarding or rebound tenderness present Extremity normal to inspection Neuro oriented x3 and no sensory deficits noted Sensorium / Orientation: alert Motor Exam: strength 5/5 throughout Psych mental status grossly normal Skin no rashes or lesions noted MDM MDM MDM Narrative Medical decision making narrative: Patient is given Zofran, Bentyl, IV fluids. Lab work obtained. Lab Data Attestation: I reviewed the patient's lab results. Labs: Laboratory Results - last 24 hr 04/25/21 04/25/21 04/25/21 10:53 11:21 11:21 WBC 11.5 H RBC 5.04 Hgb 15.5 Hct 47.4 MCV 94.0 MCH 30.8 MCHC 32.7 RDW Std Deviation 44.2 H RDW Coeff of Tuan 12.9 Plt Count 136 L MPV 10.7 Immature Gran % (Auto) 0.800 Neut % (Auto) 79.0 H Lymph % (Auto) 13.8 L [place] % (Auto) 4.9 Eos % (Auto) 0.9 Baso % (Auto) 0.6 Absolute Neuts (auto) 9.1 H Absolute Lymphs (auto) 1.58 Nucleated RBC % 0 Differential Comment SCANNED Platelet Estimate SLT DEC Sodium 133 L Potassium 4.1 Chloride 99 Carbon Dioxide 25.0 Anion Gap 9 BUN 16 Creatinine 1.18 Estim Creat Clear Calc 85.08 Est GFR (MDRD) Af Amer 86 Est GFR (MDRD) Non-Af 71 BUN/Creatinine Ratio 13.6 Glucose 122 H Calcium 9.7 Total Bilirubin 0.80 Direct Bilirubin 0.15 AST 44 H ALT 85 H Alkaline Phosphatase 137 H Total Protein 8.5 H Albumin 4.4 Globulin 4.1 Lipase 268 Urine Color Yellow Urine Clarity Clear Urine pH 5.0 Ur Specific [place] 1.020 Urine Protein 100 H Urine Glucose (UA) Normal Urine Ketones Negative Urine Occult Blood Negative Urine Nitrite Negative Urine Bilirubin Negative Urine Urobilinogen Normal Ur Leukocyte Esterase Negative Urine RBC 0 SEEN Urine WBC 0 SEEN Ur Squamous Epith Cells 0 SEEN Urine Bacteria 0 SEEN Urine Mucus 0 SEEN Treatment and Re-Evaluation Comments:: Repeat evaluation patient does report improvement in his symptoms. He will be given prescriptions for Zofran and Bentyl at home. Return instructions are provided. Discharge Plan Triage Chief Complaint: Nausea/Vomiting/Diarrhea ED Provider: Essie Myrick Dx/Rx/DC Orders Clinical Impression: Gastroenteritis Instructions: ED Gastroenteritis, Viral (Adult) Prescriptions: New ondansetron 4 mg tablet,disintegrating 4 mg PO Q8H PRN (Reason: nausea and vomiting) Qty: 10 RF: 0 dicyclomine 10 mg capsule 10 mg PO BID PRN (Reason: abdominal cramping) Qty: 10 RF: 0 No Action lansoprazole [Prevacid] 30 mg capsule,delayed release(DR/EC) 30 mg PO DAILY RF: 0 sucralfate [Carafate] 1 gram tablet 1 g PO QHS RF: 0 cyclobenzaprine 10 mg tablet 5 - 10 mg PO TID PRN (Reason: muscle spasm) Qty: 30 RF: 0 methylprednisolone [Medrol (Ivan)] 4 mg tablets,dose pack See Rx Instructions PO PER PKG DIR Qty: 21 RF: 0 allopurinol 100 mg tablet 100 mg PO DAILY Qty: 90 RF: 3 Primary Care Provider: Dawn Perez Referrals: Dawn Perez MD [Primary Care Provider] - 1 Week if not improving Disposition Disposition: Home, Self Care
[2021-04-25 13:15] VITALS: BP 139/85; PULSE 75; RESP 16; O2SAT 98
== END 2021-04-25 13:18 | disposition home or self-care (01) ==
PROVIDERS: Emergency Provider Emergency Medicine; PCP Internal Medicine
DX: K52.9 Noninfective gastroenteritis and colitis, unspecified (principal); K58.9 Irritable bowel syndrome, unspecified; M10.9 Gout, unspecified; K21.9 Gastro-esophageal reflux disease without esophagitis; M19.90 Unspecified osteoarthritis, unspecified site; Z87.19 Personal history of other diseases of the digestive system; Z90.49 Acquired absence of other specified parts of digestive tract; Z79.899 Other long term (current) drug therapy; F17.210 Nicotine dependence, cigarettes, uncomplicated
CPT/HCPCS: 80048; 80076; 81001; 83690; 85025; 87426; 96361; 96372; 96374; 99284; A4216; J2405

== ENCOUNTER → 2021-05-10 | Outpatient (CLI) | payer SELFPAY | END | disposition home or self-care (01) | LOC: LABSPEC 13:18 | PROVIDERS: PCP Internal Medicine; Referring Provider Physician Assistant; Visit Provider Physician Assistant | DX: U07.1 COVID-19 (principal); R05 Cough | CPT/HCPCS: 87635; U0005; U0003 ==

== ENCOUNTER → 2022-03-21 | Outpatient (CLI) | payer MEDICAID, SELFPAY ==
[2022-03-21 16:39] LABS: Absolute Lymphocyte Count 1.93 X10^3/uL (0.83-4.51); Absolute Neutrophil Count 7.2 X10^3/uL (2.0-7.7); Basophil# 0.05 X10^3/uL; Basophil% 0.5 % (0-1); Eosinophil# 0.26 X10^3/uL; Eosinophils% 2.6 % (0-5); Hematocrit 44.9 % (40-54); Hemoglobin 14.8 g/dL (13.0-16.5); Lymphocyte # 1.93 X10^3/ul (0.83-4.51); Lymphocyte % 19.3 % (19-41); Mean Corpuscular Hgb 31.4 pg (27.0-32.0); Mean Corpuscular Volume 95.3 fL (80-94); Mean Platelet Vol. 11.1 fl (6.2-12.0); Monocyte# 0.52 X10^3/uL; Monocyte% 5.2 % (0-10); NRBC Flagged by Analyzer 0 % (0-5); Neutrophil # 7.16 X10^3/uL (2.7-7.7); Neutrophil % 71.7 % (47-70); Platelet Count 178 K/mm3 (150-450); RBC Distribution Width CV 12.5 % (11.6-14.6); RBC Distribution Width SD 43.7 fl (35.1-43.9); Red Blood Count 4.71 M/mm3 (4.6-6.2)
[2022-03-21 19:08] LABS: AST(SGOT) 20 U/L (15-37); Alanine Aminotransfer ALT/SGPT 27 U/L (16-61); Albumin, Serum 3.9 g/dL (3.2-5.0); Alkaline Phosphatase 96 U/L (45-117); Anion Gap 6 (5-15); BUN 14 mg/dL (7-18); Calcium,Total 9.4 mg/dL (8.5-10.1); Chloride 108 mmol/L (98-107); Creatinine, Serum 1.27 mg/dL (0.70-1.30); EST Glomerular Filtration Rate 65 mL/min (>60); Est Glom Filt Rate - Afr Amer 79 mL/min (>60); Globulin 3.8 g/dL (2.2-4.2); Glucose 103 mg/dL (74-106); Potassium 4.6 mmol/L (3.5-5.1); Protein, Total 7.7 g/dL (6.4-8.2); Sodium Level 139 mmol/L (136-145); Uric Acid 8.5 mg/dL (3.5-7.2)
== END | disposition home or self-care (01) ==
LOC: BIMLAB 15:34
PROVIDERS: PCP Internal Medicine; Referring Provider Internal Medicine; Visit Provider Internal Medicine
DX: M10.9 Gout, unspecified (principal)
CPT/HCPCS: 36415; 80053; 84550; 85025

== ENCOUNTER → 2022-04-22 | Outpatient (CLI) | payer MEDICAID, SELFPAY ==
[2022-04-22 16:02] LABS: Anion Gap 7 (5-15); BUN 10 mg/dL (7-18); BUN/Creat Ratio 8.3 RATIO (10-20); Calcium,Total 9.4 mg/dL (8.5-10.1); Chloride 103 mmol/L (98-107); Creatinine, Serum 1.21 mg/dL (0.70-1.30); EST Glomerular Filtration Rate 69 mL/min (>60); Est Glom Filt Rate - Afr Amer 83 mL/min (>60); Glucose 139 mg/dL (74-106); Potassium 3.8 mmol/L (3.5-5.1); Sodium Level 139 mmol/L (136-145); Uric Acid 6.9 mg/dL (3.5-7.2)
== END | disposition home or self-care (01) ==
LOC: BIMLAB 14:31
PROVIDERS: PCP Internal Medicine; Referring Provider Internal Medicine; Visit Provider Internal Medicine
DX: M10.9 Gout, unspecified (principal)
CPT/HCPCS: 80048; 84550

== ENCOUNTER → 2022-05-31 | Outpatient (CLI) | payer MEDICAID, SELFPAY ==
[2022-05-31 16:53] LABS: Anion Gap 5 (5-15); BUN 9 mg/dL (7-18); BUN/Creat Ratio 7.2 RATIO (10-20); Calcium,Total 9.3 mg/dL (8.5-10.1); Chloride 106 mmol/L (98-107); Creatinine, Serum 1.25 mg/dL (0.70-1.30); EST Glomerular Filtration Rate 66 mL/min (>60); Est Glom Filt Rate - Afr Amer 80 mL/min (>60); Glucose 139 mg/dL (74-106); Potassium 3.9 mmol/L (3.5-5.1); Sodium Level 138 mmol/L (136-145)
== END | disposition home or self-care (01) ==
LOC: BIMLAB 15:43
PROVIDERS: PCP Internal Medicine; Referring Provider Internal Medicine; Visit Provider Internal Medicine
DX: M10.9 Gout, unspecified (principal)
CPT/HCPCS: 36415; 80048; 84550

== ENCOUNTER → 2022-10-07 | Outpatient (CLI) | payer MEDICAID, SELFPAY ==
[2022-10-07 15:38] LABS: Absolute Lymphocyte Count 2.61 X10^3/uL (0.83-4.51); Absolute Neutrophil Count 5.9 X10^3/uL (2.0-7.7); Basophil# 0.11 X10^3/uL; Basophil% 1.1 % (0-1); Eosinophil# 0.59 X10^3/uL; Eosinophils% 5.9 % (0-5); Hematocrit 49.3 % (40-54); Hemoglobin 16.1 g/dL (13.0-16.5); Lymphocyte # 2.61 X10^3/ul (0.83-4.51); Lymphocyte % 26.3 % (19-41); Mean Corp Hgb Conc 32.7 g/dL (32-36); Mean Platelet Vol. 10.6 fl (6.2-12.0); NRBC Flagged by Analyzer 0 % (0-5); Neutrophil # 5.88 X10^3/uL (2.7-7.7); Neutrophil % 59.2 % (47-70); Platelet Count 216 K/mm3 (150-450); RBC Distribution Width CV 12.6 % (11.6-14.6); Red Blood Count 5.19 M/mm3 (4.6-6.2); White Blood Count 9.9 K/mm3 (4.4-11.0)
[2022-10-07 16:01] LABS: AST(SGOT) 34 U/L (15-37); Alanine Aminotransfer ALT/SGPT 53 U/L (16-61); Albumin, Serum 4.2 g/dL (3.2-5.0); Alkaline Phosphatase 121 U/L (45-117); Anion Gap 9 (5-15); BUN 16 mg/dL (7-18); BUN/Creat Ratio 13.3 RATIO (10-20); Calcium,Total 10.2 mg/dL (8.5-10.1); Chloride 103 mmol/L (98-107); EST Glomerular Filtration Rate 69 mL/min (>60); Est Glom Filt Rate - Afr Amer 84 mL/min (>60); Globulin 4.4 g/dL (2.2-4.2); Glucose 109 mg/dL (74-106); Lipase 684 U/L (73-393); Potassium 4.5 mmol/L (3.5-5.1); Protein, Total 8.6 g/dL (6.4-8.2); Sodium Level 140 mmol/L (136-145)
== END | disposition home or self-care (01) ==
LOC: BIMLAB 13:11
PROVIDERS: PCP Internal Medicine
DX: R10.84 Generalized abdominal pain (principal); R11.2 Nausea with vomiting, unspecified; K92.0 Hematemesis; B37.0 Candidal stomatitis; K62.5 Hemorrhage of anus and rectum; R13.13 Dysphagia, pharyngeal phase
CPT/HCPCS: 36415; 80053; 83690; 85025